=== PATIENT | male | born 2000 | race Caucasian/White ===

== ENCOUNTER → 2023-08-13 11:13 | Outpatient (REF) | payer OTHER, SELFPAY | LOC: RAD 11:13 | PROVIDERS: ATTENDING PHYSICIAN Physician Assistant | DX: S69.92XA Unspecified injury of left wrist, hand and finger(s), initial encounter (principal); S42.92XA Fracture of left shoulder girdle, part unspecified, initial encounter for closed fracture | CPT/HCPCS: 73030; 73130 ==